=== PATIENT | female | born 1995 | race Two or more races ===

== ENCOUNTER 2017-01-21 23:12 | Emergency (ER) | payer OTHER, MEDICAID ==
[~2017-01-21] VITALS: Ht 167.6 cm; Wt 59.9 kg
[2017-01-21] MEDS ORDERED: ADDERAL PO (23:23)
[2017-01-21] MEDS ORDERED: Morphine Sulfate 4mg/ml Inj IVP ONE (23:30)
--- NOTE | 2017-01-21 23:32 | Emergency Room Report ---
History of Present Illness General Chief Complaint: Abdominal Pain Source: Patient Present Illness HPI This is a 21-year-old female with history of ADHD. She presents with chief complaint abdominal pain. Onset for the last 5 days. Pain is diffuse itchiness nausea vomiting. No diarrhea. She went to an ER in [place] few days ago. Blood work was unremarkable. CT scan is unremarkable. Was told that she had constipation. Pain went away but now is back. Pain is severe 10 out of 10. Diffuse in nature. No other complaint. Allergies: Coded Allergies: No Known Allergies (Unverified , 01/21/17) Patient History Past Medical History: see triage record, old chart reviewed Past Surgical History: none Pertinent Family History: none Social History: Denies: smoking Last Menstrual Period: 5 days ago Now: No Immunizations: other Reviewed Nursing Documentation: PMH: Agreed, PSxH: Agreed Nursing Documentation-PMH History Of Psychiatric Problem: Yes - ADHD Review of Systems Eye: Denies: blurred vision, eye pain ENT: Denies: ear pain, nose congestion, throat swelling Respiratory: Denies: cough, shortness of breath Cardiovascular: Denies: chest pain, palpitations Gastrointestinal: Reports: abdominal pain, nausea, vomiting, Denies: diarrhea Musculoskeletal: Denies: back pain, joint pain Skin: Denies: rash Neurological: Denies: headache, numbness Endocrine: Denies: increased thirst, increased urine Hematologic/Lymphatic: Denies: easy bruising All Other Systems: negative except mentioned in HPI Physical Exam Vital Signs Date Time Temp Pulse Resp B/P Pulse Ox O2 Delivery O2 Flow Rate FiO2 01/21/17 23:16 97.7 92 16 121/70 96 Room Air vitals normal Sp02 EP Interpretation: reviewed, normal General Appearance: well appearing, alert, moderate distress - From pain Head: normocephalic, atraumatic Eyes: bilateral eye EOMI, bilateral eye PERRL ENT: hearing grossly normal, normal pharynx Neck: full range of motion, supple, no meningismus Respiratory: chest non-tender, lungs clear, normal breath sounds Cardiovascular #1: regular rate, rhythm, no murmur Gastrointestinal: normal bowel sounds, no mass, no organomegaly, no bruit, non- distended, tenderness - Diffuse but mostly in left lower quadrant. Musculoskeletal: back normal, gait/station normal, normal range of motion Psychiatric: mood/affect normal Skin: warm/dry Medical Decision Making Diagnostic Impression: Primary Impression: Abdominal pain Qualified Codes: R10.84 - Generalized abdominal pain Additional Impression: Enterocolitis ER Course Patient presents with abdominal pain with vomiting. No diarrhea. No evidence of appendicitis. CT scan show gastroenteritis/enterocolitis. Because his been ongoing for a week, and treat her with antibiotics. She felt much better now. No evidence of ectopic. Doubt torsion. Last Vital Signs Date Time Temp Pulse Resp B/P Pulse Ox O2 Delivery O2 Flow Rate FiO2 01/21/17 23:16 97.7 92 16 121/70 96 Room Air Status: improved Disposition: HOME, SELF-CARE Condition: Stable Scripts Hydrocodone/Acetaminophen 5-325* (HYDROCODONE/ACETAMINOPHEN 5-325*) 1 Each Tablet 1 TAB ORAL Q6H Y for For Pain, #20 TAB 0 Refills Prov: RAJ ESCUDERO M.D. 01/22/17 Metronidazole* (FLAGYL*) 500 Mg Tablet 500 MG ORAL TID, #14 TAB Prov: RAJ ESCUDERO M.D. 01/22/17 Ciprofloxacin Hcl* (CIPROFLOXACIN HCL*) 500 Mg Tablet 500 MG ORAL Q12H, #14 TAB 0 Refills Prov: RAJ ESCUDERO M.D. 01/22/17 Additional Instructions: Followup with your DrDoug in 2-3 days. Return if symptom worsen RAJ ESCUDERO M.D. Jan 21, 2017 23:32
[2017-01-21 23:54] LABS: BASOPHILS % (AUTO) 1.1 % (0.0-2.0); EOSINOPHILS % (AUTO) 0.7 % (0.0-3.0); LYMPHOCYTES % (AUTO) 25.4 % (20.0-45.0); MEAN CORPUSCULAR HEMOGLOBIN 24.5 PG (27.0-31.0); MEAN CORPUSCULAR HGB CONC 31.1 G/DL (32.0-36.0); MEAN CORPUSCULAR VOLUME 79 FL (80-99); MEAN PLATELET VOLUME 7.6 FL (6.5-10.1); MONOCYTES % (AUTO) 7.3 % (1.0-10.0); NEUTROPHILS % (AUTO) 65.5 % (45.0-75.0); PLATELET COUNT 379 K/UL (150-450); RED BLOOD COUNT 5.22 M/UL (4.20-5.40); RED CELL DISTRIBUTION WIDTH 17.3 % (11.6-14.8); WHITE BLOOD COUNT 9.3 K/UL (4.8-10.8)
[2017-01-22 00:12] LABS: ALANINE AMINOTRANSFERASE 8 U/L (3-33); ALBUMIN/GLOBULIN RATIO 1.1 (1.0-2.7); ANION GAP 20 (5-15); ASPARTATE AMINO TRANSFERASE 13 U/L (5-40); CALCIUM 10.4 mg/dL (8.6-10.2); CARBON DIOXIDE 25 mEQ/L (20-30); CHLORIDE 94 mEQ/L (98-107); GLOMERULAR FILTRATION RATE > 60 mL/min (>60); HEMOLYSIS 0; LIPASE 38 U/L (< 60); POTASSIUM 3.3 mEQ/L (3.4-4.9); SODIUM 139 mEQ/L (135-145); TOTAL PROTEIN 8.7 g/dL (6.6-8.7)
[2017-01-22 00:27] LABS: APPEARANCE,URINE SLIGHTLY CLOUDY; KETONES,URINE 3+ (NEGATIVE); LEUKOCYTE ESTERASE ,URINE 1+ (NEGATIVE); NITRITE,URINE NEGATIVE (NEGATIVE); PH,URINE 9 (4.5-8.0); PROTEIN,URINE NEGATIVE (NEGATIVE); UROBILINOGEN,URINE NORMAL MG/DL (0.0-1.0)
[2017-01-22 00:39] LABS: AMORPHOUS SEDIMENT,UR MANY /LPF; BACTERIA,URINE FEW /HPF; RBC,URINE 0-2 /HPF (0 - 2); WBC,URINE 0-2 /HPF (0 - 2)
[2017-01-22] MEDS ORDERED: HYDROCODON-ACE1 EA15 ORAL (02:02)
[2017-01-22] MEDS ORDERED: CIPROFLOXACIN500 M2 ORAL (02:02)
[2017-01-22] MEDS ORDERED: METRONIDAZOLE500 MG ORAL (02:02)
[2017-01-22 02:05] VITALS: BP 124/72
[2017-01-22 02:06] VITALS: BP 124/72
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
== END 2017-01-22 02:06 | disposition home or self-care (01) ==
LOC: EMR 01-22 00:20
DX: K52.9 Noninfective gastroenteritis and colitis, unspecified (principal); F90.9 Attention-deficit hyperactivity disorder, unspecified type
CPT/HCPCS: 36415; 74177; 80053; 81003; 81025; 83690; 85025; 96360; 96374; 96375; 99284; J2270; J2405; Q9967

== ENCOUNTER 2017-10-25 14:55 | Emergency (ER) | payer OTHER, MEDICAID ==
[~2017-10-25] VITALS: Ht 167.6 cm; Wt 68.0 kg
[~2017-10-25 14:55] MED LIST: ADDERAL PO; CIPROFLOXACIN500 M2 ORAL; HYDROCODON-ACE1 EA15 ORAL; METRONIDAZOLE500 MG ORAL
[2017-10-25 16:33] VITALS: BP 125/77
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
[2017-10-25] MEDS ORDERED: Tetracaine 0.5% Opth 4ml Soln LEFT EYE ONE (18:30)
[2017-10-25] MEDS ORDERED: Fluorescein Strips LEFT EYE ONE (18:30)
[2017-10-25] MEDS ORDERED: Tetanus/Diptheria/Pertussis Vaccine 0.5ml Syr IM ONE (19:15)
[2017-10-25] MEDS ORDERED: TYLENOL EXTRA500 MG ORAL (19:16)
[2017-10-25] MEDS ORDERED: OCUFLOX5 ML OP (19:16)
[2017-10-25] MEDS ORDERED: BACITRACIN-P28.35 GM TP (19:16)
[2017-10-25] MEDS ORDERED: NORCO 5-325 TA1 EACH ORAL (19:16)
[2017-10-25 19:25] VITALS: BP 125/77
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
== END 2017-10-25 19:25 | disposition home or self-care (01) ==
LOC: EMR 16:00
DX: H16.002 Unspecified corneal ulcer, left eye (principal); Y08.89XA Assault by other specified means, initial encounter; Y92.89 Other specified places as the place of occurrence of the external cause
CPT/HCPCS: 70486; 90471; 90715; 99284